=== PATIENT | female | born 1990 | race Caucasian/White ===

== ENCOUNTER 2017-11-03 01:10 | Observation (INO) | payer OTHER | END 2017-11-03 02:20 | disposition home or self-care (01) | LOC: SPU 01:10 | PROVIDERS: ADMIT Specialist; ATTEND Specialist | DX: O26.892 Other specified pregnancy related conditions, second trimester (principal); W10.8XXA Fall (on) (from) other stairs and steps, initial encounter; Z3A.26 26 weeks gestation of pregnancy; Y93.89 Activity, other specified; Y92.89 Other specified places as the place of occurrence of the external cause; Y99.8 Other external cause status | CPT/HCPCS: G0378 ==